=== PATIENT | female | born 1950 | race Caucasian/White ===

== ENCOUNTER → 2019-08-25 | Outpatient (CLI) | payer MEDICARE, OTHER ==
--- NOTE | 2019-08-25 09:28 | RAD ---
Exam performed: 2 views of the chest. Indication: Cough Date of Service: 08/25/2019 9:06 AM . Comparison : None available. Findings: PA and lateral radiographs of the chest reveal a normal cardiomediastinal contour. The lungs are clear. No pleural fluid is seen. There are surgical clips projected in the left axillary region The visualized osseous structures are unremarkable. Impression: No acute cardiopulmonary process seen. Electronically signed by: Marli Velez MD (08/25/2019 9:25 AM) [id number]
== END | disposition home or self-care (01) ==
LOC: DXRAD 08:41
PROVIDERS: ATTEND Family Medicine
DX: R05 Cough (principal)
CPT/HCPCS: 71046